=== PATIENT | male | born 1985 ===

== ENCOUNTER 2019-11-28 10:53 | Emergency (ER) | payer OTHER ==
--- NOTE | 2019-11-28 12:10 | UC ---
Back Pain HPI - HPI Summary HPI Summary: 34 yo male presents with back pain. He tells me that he hasn't been that active in the last few weeks, but yesterday he played soccer. Throughout the soccer game yesterday he noticed his lower back starting to "tighten up". After the game he was resting and felt it tighten more. He took tylenol with mild relief and went to bed. This morning woke up and back was very tight and feels that it is in a "giant spasm". Pain with movement especially bending or standing straight up. Denies radiation of pain, numbness, tingling, loss of bowel/ bladder control, abdominal pain. - History of Current Complaint Chief Complaint: UCBackPain Stated Complaint: BACK PAIN Time Seen by Provider: 11/28/19 12:09 Hx Obtained From: Patient Onset/Duration: Sudden Onset Severity Initially: Moderate Severity Currently: Moderate Pain Intensity: 5 Pain Scale Used: 0-10 Numeric - Allergies/Home Medications Allergies/Adverse Reactions: Allergies Allergy/AdvReac Type Severity Reaction Status Date / Time No Known Allergies Allergy Verified 11/28/19 11:37 PMH/Surg Hx/FS Hx/Imm Hx - Additional Past Medical History Additional PMH: None - Surgical History Surgical History: Yes Surgery Procedure, Year, and Place: left wrist - Family History Known Family History: Positive: None - Social History Occupation: Employed Full-time Lives: With Family Alcohol Use: None Substance Use Type: None Smoking Status (MU): Never Smoked Tobacco Review of Systems All Other Systems Reviewed And Are Negative: No Constitutional: Positive: Negative Skin: Positive: Negative Respiratory: Positive: Negative Cardiovascular: Positive: Negative Neurovascular: Positive: Negative Musculoskeletal: Positive: Other: - Low back pain Neurological: Positive: Negative Psychological: Positive: Negative Physical Exam - Summary Physical Exam Summary: GENERAL: NAD. WDWN. No pain distress. SKIN: No rashes, sores, lesions, or open wounds. NECK: Supple. FROM. Nontender. No lymphadenopathy. CHEST: CTAB. No r/r/w. No accessory muscle use. Breathing comfortably and in no distress. CV: RRR. Pulses intact. Cap refill <2seconds MSK: TTP over lumbar paraspinal muscles. Pain with flexion and extension of spine. Positive SLR b/l for low back pain without radiation. Strength 5/5 B/L LEs including dorsiflexion and plantar flexion. FROM B/L LEs. No edema. NEURO: Alert. Sensations intact B/L LEs L3-S1. Reflexes intact PSYCH: Age appropriate behavior. Triage Information Reviewed: Yes Vital Signs: Initial Vital Signs Temp 98.2 F 11/28/19 11:34 Pulse 55 11/28/19 11:34 Resp 14 11/28/19 11:34 BP 105/47 11/28/19 11:34 Pulse Ox 99 11/28/19 11:34 Vital Signs Reviewed: Yes Back Pain Course/Dx - Course Course Of Treatment: Suspect muscle spasm of lower back. Discussed XRs today, but deferred given that he has no red flag symptoms or specific injury. Exam seems consistent with muscle strain/spasm. In the clinic he was given toradol IM for his discomfort and rx for flexeril. Advised to rest, ice/heat, and practice gentle ROM exercises. - Differential Dx/Diagnosis Provider Diagnosis: Spasm of muscle of lower back Discharge ED - Sign-Out/Discharge Documenting (check all that apply): Patient Departure All imaging exams completed and their final reports reviewed: No Studies - Discharge Plan Condition: Stable Disposition: HOME Prescriptions: Cyclobenzaprine TAB* [Flexeril 10 MG TAB*] 10 mg PO TID PRN #21 tab PRN Reason: Pain - Moderate Naproxen [Naproxen 500 mg tab] 500 mg PO BID PRN #30 tablet PRN Reason: Pain - Mild Patient Education Materials: Muscle Spasm (ED), Lower Back Exercises (ED) Referrals: No Primary Care Phys,NOPCP [Primary Care Provider] - Additional Instructions: If you develop a fever, shortness of breath, chest pain, new or worsening symptoms - please call your PCP or go to the ED immediately. 1) Rest and apply ice/heat to your lower back to decrease pain 2) Practice gentle range of motion exercises to loosen the muscles 3) Do not take ADVIL/IBUPROFEN/MOTRIN with the naproxen as these medications are related and can interact - Billing Disposition and Condition Condition: STABLE Disposition: Home
[2019-11-28] MEDS ORDERED: Ketorolac *IM* INJ* 60 MG/2 ML VIAL IM ONE (12:16)
== END 2019-11-28 13:00 | disposition home or self-care (01) ==
LOC: UCEAST 10:53
DX: M62.830 Muscle spasm of back (principal)
CPT/HCPCS: 96372; 99202; G0463; J1885